=== PATIENT | male | born 1935 | race Caucasian/White ===

== ENCOUNTER 2021-04-01 09:30 | Inpatient (IN) | payer MEDICARE ==
[~2021-04-01] VITALS: Ht 182.9 cm; Wt 84.5 kg
[2021-04-01 13:48] VITALS: BP 108/71
[2021-04-01] MEDS ORDERED: GLIP5TAB22 PO (14:18)
[2021-04-01] MEDS ORDERED: PRAV40TA2 PO (14:18)
[2021-04-01] MEDS ORDERED: DAPA5TAB PO (14:18)
[2021-04-01] MEDS ORDERED: LISI10TA19 PO (14:18)
[2021-04-01] MEDS ORDERED: LATA2.5D4 EACHEYE (14:18)
[2021-04-01] MEDS ORDERED: LINA5TAB PO (14:18)
[2021-04-01] MEDS ORDERED: PIOG30TA67 PO (14:18)
[2021-04-01] MEDS ORDERED: POLYETHYLENE GLYCOL 17 GM PACKET PO PRN (14:30)
[2021-04-01] MEDS: ONDANSETRON 2MG/ML, 2ML IVPush PRN (15:45)
[2021-04-01] MEDS: PIPERACILLIN/TAZO 3.375 GM in DEXTROSE 5% 50 ML IV SCH ×2 (15:45→21:30)
[2021-04-01] MEDS: ACETAMINOPHEN 325 MG TABLET PO PRN (16:05)
[2021-04-01] MEDS: INSULIN LISPRO 100 UNITS/ML, PEN SQ-INSULIN SCH ×2 (16:06→21:00)
[2021-04-01 16:38] LABS: BASOPHILS % (AUTO) 1 % (0-1); EOSINOPHILS % (AUTO) 3 % (1-7); LYMPHOCYTES % (AUTO) 39 % (22-44); MEAN CORPUSCULAR HGB CONC 33.3 g/dL (33.2-36.2); MEAN PLATELET VOLUME 7.1 fL (7.4-10.4); MONOCYTES % (AUTO) 11 % (2-9); NEUTROPHILS % (AUTO) 47 % (42-75); PLATELET COUNT 232 x10^3/uL (130-400); RED BLOOD COUNT 4.89 x10^6/uL (4.38-5.82); RED CELL DISTRIBUTION WIDTH 14.6 % (9.4-14.8)
[2021-04-01 16:47] LABS: ALANINE AMINOTRANSFERASE 18 U/L (12-78); ALBUMIN 3.3 g/dL (3.4-5.0); ANION GAP 7 mmol/L (5-15); CALCIUM 8.8 mg/dL (8.5-10.1); CHLORIDE 103 mmol/L (98-107); CREATININE 1.29 mg/dL (0.7-1.3)
[2021-04-01 16:49] LABS: ALKALINE PHOSPHATASE 56 U/L (45-117); TOTAL PROTEIN 8.2 g/dL (6.4-8.2)
[2021-04-01 18:14] LABS: HCT (SEDRATE) 48.5 % (39.2-51.8)
[2021-04-01 18:54] VITALS: BP 114/64
[2021-04-01] MEDS ORDERED: TRAZODONE 50MG TABLET PO PRN (21:00)
[2021-04-01] MEDS: PRAMIPEXOLE 0.5MG TABLET PO SCH (21:45)
[2021-04-02 01:37] VITALS: BP 108/59
[2021-04-02] MEDS: ONDANSETRON 2MG/ML, 2ML IVPush PRN (01:44)
[2021-04-02] MEDS: PIPERACILLIN/TAZO 3.375 GM in DEXTROSE 5% 50 ML IV SCH ×4 (02:53→23:41)
[2021-04-02] MEDS ORDERED: ONDANSETRON 2MG/ML, 2ML IVPush PRN (07:00)
[2021-04-02] MEDS ORDERED: OXYcodone 5 MG/5 ML ORAL.SOL UDC PO PRN (07:00)
[2021-04-02] MEDS ORDERED: PROMETHAZINE 25 MG/ML, 1ML IVPush PRN (07:00)
[2021-04-02] MEDS ORDERED: LABETALOL 5MG/ML, 20ML IV PRN (07:00)
[2021-04-02] MEDS ORDERED: EPHEDRINE 50 MG/ML, 1ML IVPush PRN (07:00)
[2021-04-02] MEDS ORDERED: hydrALAzine 20 MG/ML, 1ML IV PRN (07:00)
[2021-04-02] MEDS ORDERED: HYDROmorphone 1 MG/ML, 1ML INJ IVPush PRN (07:00)
[2021-04-02] MEDS: INSULIN LISPRO 100 UNITS/ML, PEN SQ-INSULIN SCH ×4 (07:00→22:32)
[2021-04-02] MEDS ORDERED: ACETAMINOPHEN 325 MG TABLET PO PRN (07:00)
[2021-04-02 07:41] VITALS: BP 103/71
[2021-04-02] MEDS: PRAMIPEXOLE 0.5MG TABLET PO SCH ×2 (09:00→22:28)
[2021-04-02] MEDS: SENNA/DOCUSATE TABLET PO SCH (09:00)
[2021-04-02] MEDS ORDERED: HEPARIN 1,000 UNITS/ML, 10ML ONE (09:01)
[2021-04-02] MEDS ORDERED: VISIPAQUE 270 MG/ML, 50ML BOTTLE ONE (09:01)
[2021-04-02] MEDS ORDERED: PROTAMINE SULFATE 10 MG/ML, 25ML ONE (09:02)
[2021-04-02] MEDS ORDERED: THROMBIN 20,000 UNIT VIAL TP ONE (09:02)
[2021-04-02] MEDS ORDERED: CHLORHEXIDINE 15 ML UDC ONE (09:03)
[2021-04-02] MEDS ORDERED: FENTANYL PF 250 MCG/5ML ONE (09:23)
[2021-04-02] MEDS ORDERED: CHLORHEXIDINE 15 ML UDC PO ONE (09:30)
[2021-04-02] MEDS ORDERED: HEPARIN 1,000 UNITS/ML, 10ML IV ONE (10:38)
[2021-04-02] MEDS ORDERED: PROPOFOL 10 MG/ML, 20ML ONE (10:53)
[2021-04-02] MEDS ORDERED: PHENYLEPHRINE 10 MG/ML ONE (10:53)
[2021-04-02] MEDS ORDERED: LIDOCAINE-MPF 2% ,5ML ONE (10:53)
[2021-04-02] MEDS ORDERED: DEXAMETHASONE 4 MG/ML, 1ML ONE (10:53)
[2021-04-02] MEDS ORDERED: ONDANSETRON 2MG/ML, 2ML ONE (10:53)
[2021-04-02] MEDS ORDERED: CEFAZOLIN 1,000 MG ONE (10:53)
[2021-04-02] MEDS ORDERED: SUCCINYLCHOLINE 20 MG/ML, 10ML ONE (10:53)
[2021-04-02] MEDS ORDERED: FENTANYL PF 100 MCG/2ML ONE (13:34)
[2021-04-02] MEDS ORDERED: LORazepam 2 MG/ML, 1ML ONE (13:35)
[2021-04-02] MEDS: FENTANYL PF 100 MCG/2ML IV PRN ×2 (13:40→14:10)
[2021-04-02] MEDS ORDERED: LORazepam 2 MG/ML, 1ML IVPush PRN (14:30)
[2021-04-02 15:10] VITALS: BP 135/70
[2021-04-02] MEDS ORDERED: HALOPERIDOL 5 MG/ML IM PRN (17:30)
[2021-04-02 21:56] VITALS: BP 147/85
[2021-04-02] MEDS: QUETIAPINE 25MG TABLET PO SCH (22:28)
[2021-04-02] MEDS: NYSTATIN/TRIAMCINOLONE CRM 15GM TP SCH (22:32)
[2021-04-03 01:11] VITALS: BP 146/81
[2021-04-03 04:27] VITALS: BP 119/73
[2021-04-03] MEDS: PIPERACILLIN/TAZO 3.375 GM in DEXTROSE 5% 50 ML IV SCH ×4 (05:44→23:55)
[2021-04-03 07:05] VITALS: BP 108/66
[2021-04-03] MEDS: INSULIN LISPRO 100 UNITS/ML, PEN SQ-INSULIN SCH ×4 (07:38→21:27)
[2021-04-03] MEDS: PRAMIPEXOLE 0.5MG TABLET PO SCH ×2 (08:24→21:27)
[2021-04-03] MEDS: CLOPIDOGREL 75 MG TABLET PO SCH (08:24)
[2021-04-03] MEDS: SENNA/DOCUSATE TABLET PO SCH (08:25)
[2021-04-03] MEDS: QUETIAPINE 25MG TABLET PO SCH ×2 (08:25→21:27)
[2021-04-03] MEDS: NYSTATIN/TRIAMCINOLONE CRM 15GM TP SCH ×2 (08:49→21:29)
[2021-04-03 12:40] VITALS: BP 133/78
[2021-04-03 14:41] LABS: ALANINE AMINOTRANSFERASE 14 U/L (12-78); ALBUMIN 2.8 g/dL (3.4-5.0); ANION GAP 8 mmol/L (5-15); BASOPHILS % (AUTO) 1 % (0-1); CHLORIDE 104 mmol/L (98-107); CREATININE 1.15 mg/dL (0.7-1.3); EOSINOPHILS % (AUTO) 0 % (1-7); LYMPHOCYTES % (AUTO) 16 % (22-44); MEAN CORPUSCULAR HEMOGLOBIN 32.6 pg (27.5-34.5); MEAN CORPUSCULAR HGB CONC 32.9 g/dL (33.2-36.2); MEAN PLATELET VOLUME 7.1 fL (7.4-10.4); MONOCYTES % (AUTO) 11 % (2-9); NEUTROPHILS % (AUTO) 73 % (42-75); PLATELET COUNT 244 x10^3/uL (130-400); RED BLOOD COUNT 4.11 x10^6/uL (4.38-5.82); RED CELL DISTRIBUTION WIDTH 14.4 % (9.4-14.8)
[2021-04-03 14:43] LABS: ALKALINE PHOSPHATASE 42 U/L (45-117); TOTAL PROTEIN 6.9 g/dL (6.4-8.2)
[2021-04-03 20:17] VITALS: BP 115/70
[2021-04-03] MEDS: INSULIN GLARGINE 100 UNITS/ML, PEN SQ-INSULIN SCH (21:27)
[2021-04-03] MEDS: MELATONIN 5 MG TABLET PO PRN (21:30)
[2021-04-04] MEDS: OXYcodone IR 5MG TABLET PO PRN ×2 (02:14→09:56)
[2021-04-04 02:22] VITALS: BP 103/66
[2021-04-04] MEDS: PIPERACILLIN/TAZO 3.375 GM in DEXTROSE 5% 50 ML IV SCH ×2 (06:21→12:09)
[2021-04-04] MEDS: INSULIN LISPRO 100 UNITS/ML, PEN SQ-INSULIN SCH ×4 (07:00→22:28)
[2021-04-04 08:28] VITALS: BP 132/51
[2021-04-04] MEDS: QUETIAPINE 25MG TABLET PO SCH ×2 (09:58→22:08)
[2021-04-04] MEDS: CLOPIDOGREL 75 MG TABLET PO SCH (09:58)
[2021-04-04] MEDS: SENNA/DOCUSATE TABLET PO SCH (09:58)
[2021-04-04] MEDS: NYSTATIN/TRIAMCINOLONE CRM 15GM TP SCH ×2 (09:59→22:09)
[2021-04-04] MEDS: PRAMIPEXOLE 0.5MG TABLET PO SCH ×2 (10:14→22:08)
[2021-04-04] MEDS ORDERED: ARTIFICIAL TEARS 15 DROP/ML BOTTLE LEFTEYE PRN ×2 (12:00→17:30)
[2021-04-04 14:13] VITALS: BP 118/71
[2021-04-04] MEDS ORDERED: POLYETHYLENE GLYCOL 17 GM PACKET PO SCH (16:00)
[2021-04-04] MEDS: DAPTOMYCIN 400 MG in SODIUM CHLORIDE 0.9% 100 ML IV SCH (16:01)
[2021-04-04 20:33] VITALS: BP 127/74
[2021-04-04] MEDS ORDERED: ATORVASTATIN 40 MG TABLET PO SCH (21:00)
[2021-04-04] MEDS: MELATONIN 5 MG TABLET PO PRN (22:07)
[2021-04-04] MEDS: POLYETHYLENE GLYCOL 17 GM PACKET PO SCH (22:09)
[2021-04-04] MEDS: INSULIN GLARGINE 100 UNITS/ML, PEN SQ-INSULIN SCH (22:27)
[2021-04-05 01:55] VITALS: BP 115/70
[2021-04-05] MEDS: OXYcodone IR 5MG TABLET PO PRN (04:27)
[2021-04-05] MEDS: INSULIN LISPRO 100 UNITS/ML, PEN SQ-INSULIN SCH ×4 (07:00→21:00)
[2021-04-05 07:46] VITALS: BP 114/72
[2021-04-05] MEDS: PRAMIPEXOLE 0.5MG TABLET PO SCH ×2 (10:12→21:40)
[2021-04-05] MEDS: POLYETHYLENE GLYCOL 17 GM PACKET PO SCH ×2 (10:12→21:39)
[2021-04-05] MEDS: CLOPIDOGREL 75 MG TABLET PO SCH (10:12)
[2021-04-05] MEDS: QUETIAPINE 25MG TABLET PO SCH ×2 (10:13→21:40)
[2021-04-05] MEDS: SENNA/DOCUSATE TABLET PO SCH (10:13)
[2021-04-05] MEDS: NYSTATIN/TRIAMCINOLONE CRM 15GM TP SCH ×2 (10:18→21:40)
[2021-04-05 14:57] VITALS: BP 114/71
[2021-04-05] MEDS: DAPTOMYCIN 400 MG in SODIUM CHLORIDE 0.9% 100 ML IV SCH (17:23)
[2021-04-05] MEDS: MELATONIN 5 MG TABLET PO PRN (21:39)
[2021-04-05 21:50] VITALS: BP 150/82
[2021-04-05] MEDS: INSULIN GLARGINE 100 UNITS/ML, PEN SQ-INSULIN SCH (21:56)
[2021-04-06 00:34] VITALS: BP 111/69
[2021-04-06] MEDS: INSULIN LISPRO 100 UNITS/ML, PEN SQ-INSULIN SCH ×4 (07:00→20:14)
[2021-04-06 08:16] VITALS: BP 147/70
[2021-04-06 08:21] LABS: BASOPHILS % (AUTO) 0 % (0-1); EOSINOPHILS % (AUTO) 3 % (1-7); LYMPHOCYTES % (AUTO) 17 % (22-44); MEAN CORPUSCULAR HGB CONC 33.4 g/dL (33.2-36.2); MEAN PLATELET VOLUME 7.1 fL (7.4-10.4); MONOCYTES % (AUTO) 7 % (2-9); NEUTROPHILS % (AUTO) 73 % (42-75); PLATELET COUNT 244 x10^3/uL (130-400); RED BLOOD COUNT 3.97 x10^6/uL (4.38-5.82); RED CELL DISTRIBUTION WIDTH 14.7 % (9.4-14.8)
[2021-04-06 08:29] LABS: ALBUMIN 2.4 g/dL (3.4-5.0); ANION GAP 7 mmol/L (5-15); CHLORIDE 105 mmol/L (98-107)
[2021-04-06 08:32] LABS: ALANINE AMINOTRANSFERASE 24 U/L (12-78); ALKALINE PHOSPHATASE 46 U/L (45-117); BILIRUBIN,TOTAL 0.9 mg/dL (0.2-1.0); CREATININE 0.62 mg/dL (0.7-1.3); TOTAL PROTEIN 6.9 g/dL (6.4-8.2)
[2021-04-06] MEDS: SENNA/DOCUSATE TABLET PO SCH (08:50)
[2021-04-06] MEDS: PRAMIPEXOLE 0.5MG TABLET PO SCH ×2 (08:51→20:12)
[2021-04-06] MEDS: POLYETHYLENE GLYCOL 17 GM PACKET PO SCH ×2 (08:51→20:12)
[2021-04-06] MEDS: QUETIAPINE 25MG TABLET PO SCH ×2 (08:51→20:12)
[2021-04-06] MEDS: CLOPIDOGREL 75 MG TABLET PO SCH (08:51)
[2021-04-06] MEDS: NYSTATIN/TRIAMCINOLONE CRM 15GM TP SCH ×2 (08:52→20:13)
[2021-04-06] MEDS: BISACODYL 10 MG SUPP PR PRN (14:42)
[2021-04-06 15:00] VITALS: BP 129/76
[2021-04-06] MEDS: DAPTOMYCIN 400 MG in SODIUM CHLORIDE 0.9% 100 ML IV SCH (17:49)
[2021-04-06 19:33] VITALS: BP 137/75
[2021-04-06] MEDS: INSULIN GLARGINE 100 UNITS/ML, PEN SQ-INSULIN SCH (20:13)
[2021-04-06] MEDS: CIPROFLOXACIN OPHTH SOLN 0.3%, 5ML LEFTEYE SCH (20:25)
[2021-04-07 03:11] VITALS: BP 148/76
[2021-04-07 05:55] LABS: BASOPHILS % (AUTO) 0 % (0-1); EOSINOPHILS % (AUTO) 3 % (1-7); LYMPHOCYTES % (AUTO) 8 % (22-44); MEAN CORPUSCULAR HEMOGLOBIN 32.5 pg (27.5-34.5); MEAN CORPUSCULAR HGB CONC 33.2 g/dL (33.2-36.2); MEAN PLATELET VOLUME 6.9 fL (7.4-10.4); MONOCYTES % (AUTO) 9 % (2-9); NEUTROPHILS % (AUTO) 80 % (42-75); PLATELET COUNT 272 x10^3/uL (130-400); RED BLOOD COUNT 4.16 x10^6/uL (4.38-5.82); RED CELL DISTRIBUTION WIDTH 14.4 % (9.4-14.8)
[2021-04-07 05:56] LABS: HCT (SEDRATE) 39.8 % (39.2-51.8)
[2021-04-07 06:05] LABS: ALBUMIN 2.4 g/dL (3.4-5.0); ANION GAP 5 mmol/L (5-15); CALCIUM 8.9 mg/dL (8.5-10.1); CHLORIDE 104 mmol/L (98-107)
[2021-04-07 06:15] LABS: ALANINE AMINOTRANSFERASE 25 U/L (12-78); ALKALINE PHOSPHATASE 52 U/L (45-117); CREATINE KINASE, TOTAL 73 U/L (39-308); CREATININE 0.79 mg/dL (0.7-1.3)
[2021-04-07] MEDS: INSULIN LISPRO 100 UNITS/ML, PEN SQ-INSULIN SCH ×4 (06:53→21:00)
[2021-04-07 07:36] VITALS: BP 136/79
[2021-04-07] MEDS: ONDANSETRON 2MG/ML, 2ML IVPush PRN (08:29)
[2021-04-07] MEDS: SENNA/DOCUSATE TABLET PO SCH (09:00)
[2021-04-07] MEDS: POLYETHYLENE GLYCOL 17 GM PACKET PO SCH ×2 (09:00→20:12)
[2021-04-07] MEDS: PRAMIPEXOLE 0.5MG TABLET PO SCH ×2 (09:58→20:12)
[2021-04-07] MEDS: CIPROFLOXACIN OPHTH SOLN 0.3%, 5ML LEFTEYE SCH ×2 (09:58→20:12)
[2021-04-07] MEDS: QUETIAPINE 25MG TABLET PO SCH ×2 (09:59→20:12)
[2021-04-07] MEDS: NYSTATIN/TRIAMCINOLONE CRM 15GM TP SCH ×2 (09:59→20:13)
[2021-04-07] MEDS: CLOPIDOGREL 75 MG TABLET PO SCH (09:59)
[2021-04-07] MEDS ORDERED: ASPIRIN 81 MG TABLET EC PO SCH (10:00)
[2021-04-07] MEDS ORDERED: ENOXAPARIN 40 MG/0.4 ML SQ SCH (10:30)
[2021-04-07] MEDS: AMPICILLIN/SULBACTAM 3 GM in SODIUM CHLORIDE 0.9% 100 ML IV SCH ×3 (11:46→23:48)
[2021-04-07] MEDS: OXYcodone IR 5MG TABLET PO PRN (11:52)
[2021-04-07 13:43] VITALS: BP 120/69
[2021-04-07 19:54] VITALS: BP 127/68
[2021-04-07] MEDS: APIXABAN 5 MG TABLET PO SCH (20:12)
[2021-04-07] MEDS: INSULIN GLARGINE 100 UNITS/ML, PEN SQ-INSULIN SCH (21:09)
[2021-04-08 01:32] VITALS: BP 128/76
[2021-04-08] MEDS: AMPICILLIN/SULBACTAM 3 GM in SODIUM CHLORIDE 0.9% 100 ML IV SCH ×3 (05:44→20:00)
[2021-04-08 06:31] LABS: BASOPHILS % (AUTO) 1 % (0-1); EOSINOPHILS % (AUTO) 4 % (1-7); LYMPHOCYTES % (AUTO) 10 % (22-44); MEAN CORPUSCULAR HEMOGLOBIN 33.7 pg (27.5-34.5); MEAN CORPUSCULAR HGB CONC 34.3 g/dL (33.2-36.2); MEAN PLATELET VOLUME 7.1 fL (7.4-10.4); MONOCYTES % (AUTO) 11 % (2-9); NEUTROPHILS % (AUTO) 75 % (42-75); PLATELET COUNT 259 x10^3/uL (130-400); RED BLOOD COUNT 3.99 x10^6/uL (4.38-5.82); RED CELL DISTRIBUTION WIDTH 14.8 % (9.4-14.8)
[2021-04-08 06:41] LABS: CHLORIDE 103 mmol/L (98-107)
[2021-04-08 06:51] LABS: ALANINE AMINOTRANSFERASE 26 U/L (12-78); ALBUMIN 2.3 g/dL (3.4-5.0); ALKALINE PHOSPHATASE 54 U/L (45-117); ANION GAP 7 mmol/L (5-15); BILIRUBIN,TOTAL 1.1 mg/dL (0.2-1.0); CREATININE 0.84 mg/dL (0.7-1.3)
[2021-04-08] MEDS: INSULIN LISPRO 100 UNITS/ML, PEN SQ-INSULIN SCH ×4 (07:00→21:00)
[2021-04-08 08:01] VITALS: BP 126/76
[2021-04-08] MEDS: ONDANSETRON 2MG/ML, 2ML IVPush PRN (08:09)
[2021-04-08] MEDS: CIPROFLOXACIN OPHTH SOLN 0.3%, 5ML LEFTEYE SCH ×2 (09:17→21:00)
[2021-04-08] MEDS: POLYETHYLENE GLYCOL 17 GM PACKET PO SCH ×2 (09:17→21:00)
[2021-04-08] MEDS: PRAMIPEXOLE 0.5MG TABLET PO SCH ×2 (09:17→21:10)
[2021-04-08] MEDS: APIXABAN 5 MG TABLET PO SCH ×2 (09:17→21:10)
[2021-04-08] MEDS: NYSTATIN/TRIAMCINOLONE CRM 15GM TP SCH ×2 (09:18→21:00)
[2021-04-08] MEDS: QUETIAPINE 25MG TABLET PO SCH ×2 (09:18→21:10)
[2021-04-08] MEDS: CLOPIDOGREL 75 MG TABLET PO SCH (09:18)
[2021-04-08] MEDS: SENNA/DOCUSATE TABLET PO SCH (09:18)
[2021-04-08] MEDS ORDERED: CLOP75TA PO (11:39)
[2021-04-08] MEDS ORDERED: PRAM0.5T5 PO (11:39)
[2021-04-08] MEDS ORDERED: APIX5TAB PO (11:39)
[2021-04-08] MEDS ORDERED: QUET25TA7 PO (11:39)
[2021-04-08] MEDS ORDERED: INSU100I13 SQ-INSULIN (11:39)
[2021-04-08 15:20] VITALS: BP 130/76
[2021-04-08 19:02] VITALS: BP 137/69
[2021-04-08] MEDS: INSULIN GLARGINE 100 UNITS/ML, PEN SQ-INSULIN SCH (21:13)
[2021-04-09 01:13] VITALS: BP 119/62
[2021-04-09] MEDS: AMPICILLIN/SULBACTAM 3 GM in SODIUM CHLORIDE 0.9% 100 ML IV SCH ×4 (02:06→20:25)
[2021-04-09 06:42] VITALS: BP 111/61
[2021-04-09] MEDS: INSULIN LISPRO 100 UNITS/ML, PEN SQ-INSULIN SCH ×4 (07:00→20:26)
[2021-04-09] MEDS: PRAMIPEXOLE 0.5MG TABLET PO SCH ×2 (08:41→20:25)
[2021-04-09] MEDS: SENNA/DOCUSATE TABLET PO SCH (08:41)
[2021-04-09] MEDS: CLOPIDOGREL 75 MG TABLET PO SCH (08:41)
[2021-04-09] MEDS: QUETIAPINE 25MG TABLET PO SCH ×2 (08:41→20:25)
[2021-04-09] MEDS: NYSTATIN/TRIAMCINOLONE CRM 15GM TP SCH ×2 (08:41→20:27)
[2021-04-09] MEDS: APIXABAN 5 MG TABLET PO SCH ×2 (08:41→20:25)
[2021-04-09] MEDS: POLYETHYLENE GLYCOL 17 GM PACKET PO SCH ×2 (08:41→20:25)
[2021-04-09] MEDS: CIPROFLOXACIN OPHTH SOLN 0.3%, 5ML LEFTEYE SCH (08:46)
[2021-04-09] MEDS: OXYcodone IR 5MG TABLET PO PRN (09:59)
[2021-04-09 13:25] VITALS: BP 112/68
[2021-04-09 19:45] VITALS: BP 115/64
[2021-04-09] MEDS: INSULIN GLARGINE 100 UNITS/ML, PEN SQ-INSULIN SCH (20:26)
[2021-04-10 00:49] VITALS: BP 116/68
[2021-04-10] MEDS: AMPICILLIN/SULBACTAM 3 GM in SODIUM CHLORIDE 0.9% 100 ML IV SCH ×3 (02:14→13:28)
[2021-04-10] MEDS: INSULIN LISPRO 100 UNITS/ML, PEN SQ-INSULIN SCH ×2 (07:00→10:55)
[2021-04-10 07:24] VITALS: BP 151/71
[2021-04-10] MEDS: POLYETHYLENE GLYCOL 17 GM PACKET PO SCH (07:56)
[2021-04-10] MEDS: PRAMIPEXOLE 0.5MG TABLET PO SCH (07:56)
[2021-04-10] MEDS: SENNA/DOCUSATE TABLET PO SCH (07:56)
[2021-04-10] MEDS: CLOPIDOGREL 75 MG TABLET PO SCH (07:56)
[2021-04-10] MEDS: APIXABAN 5 MG TABLET PO SCH (07:56)
[2021-04-10] MEDS: QUETIAPINE 25MG TABLET PO SCH (07:56)
[2021-04-10] MEDS: NYSTATIN/TRIAMCINOLONE CRM 15GM TP SCH (07:56)
[2021-04-10] MEDS ORDERED: LATANOPROST OPHTH 0.005%, 2.5ML EACHEYE SCH (09:00)
[2021-04-10] MEDS: BISACODYL 10 MG SUPP PR PRN (09:53)
[2021-04-10] MEDS: OXYcodone IR 5MG TABLET PO PRN (12:26)
[2021-04-10] MEDS: ACETAMINOPHEN 325 MG TABLET PO PRN (12:26)
[2021-04-10 13:46] VITALS: BP 109/69
== END 2021-04-10 16:11 | DRG 253 ==
LOC: 4NE 12:47
PROVIDERS: ADMIT Surgery; ATTEND Surgery
PROC: 041M09Q Bypass Right Popliteal Artery to Lower Extremity Artery with Autologous Venous Tissue, Open Approach (ICD-10-PCS; principal; 2021-04-03)
PROC: 06BP0ZZ Excision of Right Saphenous Vein, Open Approach (ICD-10-PCS; 2021-04-03)
PROC: 0LDV0ZZ Extraction of Right Foot Tendon, Open Approach (ICD-10-PCS; 2021-04-03)
PROC: 02HV33Z Insertion of Infusion Device into Superior Vena Cava, Percutaneous Approach (ICD-10-PCS; 2021-04-08)
PROC: B548ZZA Ultrasonography of Superior Vena Cava, Guidance (ICD-10-PCS; 2021-04-08)
DX: E11.52 Type 2 diabetes mellitus with diabetic peripheral angiopathy with gangrene (principal); F05 Delirium due to known physiological condition; M86.171 Other acute osteomyelitis, right ankle and foot; B49 Unspecified mycosis; I70.235 Atherosclerosis of native arteries of right leg with ulceration of other part of foot; L97.512 Non-pressure chronic ulcer of other part of right foot with fat layer exposed; F03.90 Unspecified dementia, unspecified severity, without behavioral disturbance, psychotic disturbance, mood disturbance, and anxiety; E11.69 Type 2 diabetes mellitus with other specified complication; E66.9 Obesity, unspecified; E78.5 Hyperlipidemia, unspecified; I10 Essential (primary) hypertension; E11.621 Type 2 diabetes mellitus with foot ulcer; Z20.822 Contact with and (suspected) exposure to COVID-19; Z79.01 Long term (current) use of anticoagulants; Z79.2 Long term (current) use of antibiotics; Z68.25 Body mass index [BMI] 25.0-25.9, adult; Z72.89 Other problems related to lifestyle; Z86.718 Personal history of other venous thrombosis and embolism; Z87.891 Personal history of nicotine dependence
CPT/HCPCS: 36415; 36573; 74018; 80053; 82550; 82962; 83036; 83735; 85025; 85651; 86140; 87070; 87077; 87147; 87186; 87205; 87635; 93005; G0378; J0295; J0690; J0878; J1100; J1644; J1650; J2405; J2543; J2704; J2720; J3010; Q9966; C1751; J0330; J1815; J2060; J2370